=== PATIENT | female | born 1965 | race Caucasian/White ===

== ENCOUNTER 2023-06-18 21:24 | Emergency (ER) | payer OTHER ==
[2023-06-18 22:00] VITALS: BP 159/78; BMI 28.8
[2023-06-18 23:28] LABS: BASO % 0.8 % (0-2.0); EOS % 1.6 % (0-4.5); HEMATOCRIT 43.7 % (32.4-45.2); HEMOGLOBIN 15.3 GM/dL (10.7-15.3); LYMPH % 20.6 % (8-40); MEAN CELL VOLUME 88.5 fl (80-96); MONO % 5.9 % (3.8-10.2); NEUT % 71.1 % (42.8-82.8); PLATELET COUNT 317 10^3/uL (134-434); RBC 4.94 M/mm3 (3.60-5.2); RDW 13.5 % (11.6-15.6); WHITE BLOOD COUNT 13.1 K/mm3 (4.0-10.0)
[2023-06-18 23:32] LABS: PH,URINE 5.5 (5.0-8.0); URINE APPEARANCE CLEAR; URINE BILIRUBIN NEGATIVE (NEGATIVE); URINE COLOR YELLOW; URINE GLUCOSE (UA) NEGATIVE (NEGATIVE); URINE KETONE TRACE (NEGATIVE); URINE LEUK ESTERASE NEGATIVE (NEGATIVE); URINE NITRITE NEGATIVE (NEGATIVE); URINE PROTEIN NEGATIVE (NEGATIVE)
[2023-06-18 23:46] LABS: ALBUMIN 3.6 g/dl (3.4-5.0); CALCIUM 9.3 mg/dL (8.5-10.1); MAGNESIUM 2.1 mg/dL (1.8-2.4)
[2023-06-18 23:49] LABS: CREATININE 0.5 mg/dL (0.55-1.3)
[2023-06-18 23:51] LABS: BILIRUBIN,TOTAL 0.5 mg/dL (0.2-1); TOT PROT 6.2 g/dl (6.4-8.2)
[2023-06-18 23:58] LABS: INR 1.05 (0.83-1.09); PROTHROMBIN TIME (PATIENT) 11.8 SEC (9.7-13.0)
[2023-06-19 00:01] LABS: ACTIVATED PTT 34.7 SECONDS (25.2-36.5)
[2023-06-19 00:42] VITALS: PULSE 69; RESP 17; TEMP 97.9
== END 2023-06-19 04:55 ==
LOC: JER 21:24
PROC: 0HQ1XZZ Repair Face Skin, External Approach (ICD-10-PCS; principal; 2023-06-18)
DX: S01.112A Laceration without foreign body of left eyelid and periocular area, initial encounter (principal); S00.83XA Contusion of other part of head, initial encounter; Z20.822 Contact with and (suspected) exposure to COVID-19
CPT/HCPCS: 0241U-QW; 36415; 70450-TC; 71045-TC-FY; 72125-TC; 80053; 81003; 83735; 85025; 85610; 85730; 87086; 93005; 93010; 99285-25

== ENCOUNTER 2023-07-09 10:55 | Inpatient (IN) | payer OTHER ==
[2023-07-09 16:47] LABS: BASO % 0.7 % (0-2.0); EOS % 1.3 % (0-4.5); HEMATOCRIT 41.8 % (32.4-45.2); HEMOGLOBIN 14.6 GM/dL (10.7-15.3); LYMPH % 26.6 % (8-40); MEAN CELL VOLUME 88.7 fl (80-96); MEAN PLT VOLUME 7.3 fl (7.5-11.1); NEUT % 64.4 % (42.8-82.8); PLATELET COUNT 211 10^3/uL (134-434); RBC 4.71 M/mm3 (3.60-5.2); RDW 13.6 % (11.6-15.6); WHITE BLOOD COUNT 7.6 K/mm3 (4.0-10.0)
[2023-07-09 17:02] LABS: POTASSIUM 4.2 mmol/L (3.5-5.1)
[2023-07-09 17:05] LABS: ALBUMIN 3.3 g/dl (3.4-5.0); BLOOD UREA NITROGEN 16.2 mg/dL (7-18)
[2023-07-09 17:09] LABS: BILIRUBIN,TOTAL 0.6 mg/dL (0.2-1); CREATININE 0.3 mg/dL (0.55-1.3)
[2023-07-09] MEDS: REMDESIVIR 200 MG in SODIUM CHLORIDE 250 ML IVPB ONE (19:24)
[2023-07-09] MEDS: HEPARIN NA (PORCINE) 5,000 UNITS/ML 1ML VIAL SQ SCH (22:10)
[2023-07-09] MEDS: LURASIDONE HCL 40 MG TABLET PO SCH (22:10)
[2023-07-09] MEDS: propRANOLol HCL 10 MG TABLET PO SCH (22:10)
[2023-07-09] MEDS: LORazepam 0.5 MG TABLET PO SCH (22:11)
[2023-07-10 09:57] LABS: BASO % 1.1 % (0-2.0); EOS % 2.1 % (0-4.5); HEMOGLOBIN 13.5 GM/dL (10.7-15.3); LYMPH % 36.2 % (8-40); MCH 31.6 pg (25.7-33.7); MCHC 35.6 g/dl (32.0-36.0); MEAN CELL VOLUME 88.8 fl (80-96); MEAN PLT VOLUME 8.1 fl (7.5-11.1); MONO % 6.1 % (3.8-10.2); NEUT % 54.5 % (42.8-82.8); PLATELET COUNT 206 10^3/uL (134-434); RBC 4.28 M/mm3 (3.60-5.2); RDW 13.8 % (11.6-15.6)
[2023-07-10] MEDS: ZINC SULFATE 220 MG CAPSULE (FP) PO SCH (10:35)
[2023-07-10] MEDS: amLODIPine BESYLATE 5 MG TABLET (FP) PO SCH (10:35)
[2023-07-10] MEDS: MIRTAZAPINE 15 MG TABLET (FP) PO SCH (10:35)
[2023-07-10] MEDS: CHOLECALCIFEROL (VIT D3) 1,000 UNIT (25 MCG) TABLET PO SCH (10:35)
[2023-07-10] MEDS: POLYETHYLENE GLYCOL (HEALTHYLAX) 3350 17 GM PACKET PO SCH (10:35)
[2023-07-10] MEDS: ASCORBIC ACID 500 MG TABLET (FP) PO SCH (10:35)
[2023-07-10] MEDS: SENNOSIDES 8.6MG TABLET (FP) PO SCH (10:37)
[2023-07-10 10:50] LABS: BLOOD UREA NITROGEN 18.4 mg/dL (7-18); CALCIUM 9.1 mg/dL (8.5-10.1)
[2023-07-10 10:54] LABS: CREATININE 0.3 mg/dL (0.55-1.3)
[2023-07-10] MEDS: REMDESIVIR 100 MG in SODIUM CHLORIDE 250 ML IVPB SCH (17:10)
[2023-07-10] MEDS: SENNOSIDES 8.6MG TABLET (FP) PO ONE (23:43)
[2023-07-11 07:59] LABS: BASO % 1.1 % (0-2.0); EOS % 1.2 % (0-4.5); HEMATOCRIT 38.6 % (32.4-45.2); HEMOGLOBIN 13.2 GM/dL (10.7-15.3); LYMPH % 30.6 % (8-40); MCH 30.4 pg (25.7-33.7); MCHC 34.2 g/dl (32.0-36.0); MEAN CELL VOLUME 88.9 fl (80-96); MEAN PLT VOLUME 7.8 fl (7.5-11.1); MONO % 6.3 % (3.8-10.2); NEUT % 60.8 % (42.8-82.8); PLATELET COUNT 224 10^3/uL (134-434); RBC 4.34 M/mm3 (3.60-5.2); RDW 13.6 % (11.6-15.6); WHITE BLOOD COUNT 6.5 K/mm3 (4.0-10.0)
[2023-07-11 08:38] LABS: MAGNESIUM 2.1 mg/dL (1.8-2.4)
[2023-07-11 15:41] VITALS: BMI 30.9
[2023-07-11] MEDS: MIRTAZAPINE 15 MG TABLET (FP) PO SCH (22:50)
[2023-07-12 08:01] LABS: BASO % 0.9 % (0-2.0); EOS % 0.7 % (0-4.5); HEMATOCRIT 39.7 % (32.4-45.2); HEMOGLOBIN 14.1 GM/dL (10.7-15.3); LYMPH % 24.3 % (8-40); MCH 31.3 pg (25.7-33.7); MCHC 35.6 g/dl (32.0-36.0); MEAN PLT VOLUME 7.3 fl (7.5-11.1); MONO % 6.2 % (3.8-10.2); NEUT % 67.9 % (42.8-82.8); PLATELET COUNT 262 10^3/uL (134-434); RBC 4.51 M/mm3 (3.60-5.2); RDW 13.7 % (11.6-15.6)
[2023-07-13 08:17] LABS: BASO % 0.8 % (0-2.0); EOS % 1.1 % (0-4.5); HEMOGLOBIN 14.5 GM/dL (10.7-15.3); LYMPH % 25.1 % (8-40); MCH 31.3 pg (25.7-33.7); MCHC 35.4 g/dl (32.0-36.0); MEAN CELL VOLUME 88.7 fl (80-96); MEAN PLT VOLUME 7.4 fl (7.5-11.1); MONO % 6.6 % (3.8-10.2); NEUT % 66.4 % (42.8-82.8); PLATELET COUNT 260 10^3/uL (134-434); RBC 4.63 M/mm3 (3.60-5.2); RDW 13.9 % (11.6-15.6); WHITE BLOOD COUNT 6.9 K/mm3 (4.0-10.0)
[2023-07-13] MEDS: ACETAMINOPHEN 325 MG TABLET (FP) PO PRN (14:45)
[2023-07-14 14:12] VITALS: BP 107/86; PULSE 83; RESP 20; TEMP 97.5
== END 2023-07-14 13:52 | DRG 178 ==
LOC: JER 10:55 → JERBED 15:03 → J8W 19:33
PROVIDERS: ADMIT Internal Medicine; ATTEND Nurse Practitioner Acute Care
PROC: XW033E5 Introduction of Remdesivir Anti-infective into Peripheral Vein, Percutaneous Approach, New Technology Group 5 (ICD-10-PCS; principal; 2023-07-09)
DX: U07.1 COVID-19 (principal); F20.2 Catatonic schizophrenia; I69.351 Hemiplegia and hemiparesis following cerebral infarction affecting right dominant side; G35 Multiple sclerosis; I10 Essential (primary) hypertension; F32.9 Major depressive disorder, single episode, unspecified; E66.9 Obesity, unspecified; Z68.30 Body mass index [BMI] 30.0-30.9, adult
CPT/HCPCS: 36415; 71045-TC-FY; 80048; 80053; 83735; 85025; 85379; 86140; 87635; 97116-GP; 97162-GP; 99285-25; J0248; J1644

== ENCOUNTER 2024-01-20 11:03 | Inpatient (IN) | payer OTHER ==
[2024-01-20 14:28] LABS: BASO % 0.4 % (0-2.0); EOS % 2.1 % (0-4.5); HEMOGLOBIN 14.7 GM/dL (10.7-15.3); LYMPH % 21.2 % (8-40); MCH 31.2 pg (25.7-33.7); MCHC 34.1 g/dl (32.0-36.0); MEAN CELL VOLUME 91.3 fl (80-96); MEAN PLT VOLUME 7.6 fl (7.5-11.1); MONO % 4.4 % (3.8-10.2); NEUT % 71.9 % (42.8-82.8); PLATELET COUNT 219 10^3/uL (134-434); RDW 13.4 % (11.6-15.6); WHITE BLOOD COUNT 9.6 K/mm3 (4.0-10.0)
[2024-01-20 14:43] LABS: POTASSIUM 3.8 mmol/L (3.5-5.1)
[2024-01-20 14:45] LABS: CALCIUM 9.2 mg/dL (8.5-10.1); VENOUS BASE EXCESS -1.1 mmol/L (-2-2); VENOUS O2 SATURATION 92.7 % (70-80); VENOUS PCO2 37.2 mmHg (38-52); VENOUS PH 7.41 (7.310-7.410)
[2024-01-20 14:46] LABS: ALBUMIN 3.1 g/dl (3.4-5.0)
[2024-01-20 14:49] LABS: CREATININE 0.3 mg/dL (0.55-1.3)
[2024-01-20 14:50] LABS: BILIRUBIN,TOTAL 0.6 mg/dL (0.2-1); TOT PROT 5.6 g/dl (6.4-8.2)
[2024-01-20 15:03] LABS: EPI CELLS >36 /uL (0-25.1); HYALINE CASTS 1 /uL (0-3.1); PH,URINE 5.5 (5.0-8.0); URINE APPEARANCE CLOUDY; URINE BACTERIA 775 /uL (0-1359); URINE BILIRUBIN NEGATIVE (NEGATIVE); URINE COLOR YELLOW; URINE GLUCOSE (UA) NEGATIVE (NEGATIVE); URINE KETONE 3+ (NEGATIVE); URINE LEUK ESTERASE TRACE (NEGATIVE); URINE NITRITE NEGATIVE (NEGATIVE); URINE PROTEIN NEGATIVE (NEGATIVE); URINE WBC 39 /uL (0-25.8)
[2024-01-20 15:28] LABS: URINE RBC 21 /uL (0-23.9)
[2024-01-20] MEDS ORDERED: CEFTRIAXONE 1 G/50 ML PREMIX 50 ML IVPB ONE (16:01)
[2024-01-20] MEDS: DEXTROSE 5%-0.45% SALINE 1,000 ML IV SCH (18:51)
[2024-01-20] MEDS ORDERED: HEPARIN NA (PORCINE) 5,000 UNITS/ML 1ML VIAL ONE (22:09)
[2024-01-20] MEDS ORDERED: LORazepam 0.5 MG TABLET ONE ×2 (22:13→22:17)
[2024-01-20] MEDS: HEPARIN NA (PORCINE) 5,000 UNITS/ML 1ML VIAL SQ SCH (22:14)
[2024-01-20] MEDS: LORazepam 0.5 MG TABLET PO SCH (22:22)
[2024-01-21 08:41] LABS: POTASSIUM 3.3 mmol/L (3.5-5.1)
[2024-01-21 08:45] LABS: BASO % 0.4 % (0-2.0); EOS % 2.1 % (0-4.5); HEMATOCRIT 37.1 % (32.4-45.2); LYMPH % 17.3 % (8-40); MCH 31.9 pg (25.7-33.7); MCHC 34.9 g/dl (32.0-36.0); MEAN CELL VOLUME 91.2 fl (80-96); MEAN PLT VOLUME 8.2 fl (7.5-11.1); MONO % 4.6 % (3.8-10.2); NEUT % 75.6 % (42.8-82.8); PLATELET COUNT 212 10^3/uL (134-434); RBC 4.07 M/mm3 (3.60-5.2); RDW 13.3 % (11.6-15.6); WHITE BLOOD COUNT 10.2 K/mm3 (4.0-10.0)
[2024-01-21 08:51] LABS: BLOOD UREA NITROGEN 12.6 mg/dL (7-18); CALCIUM 8.7 mg/dL (8.5-10.1)
[2024-01-21 08:53] LABS: CREATININE 0.2 mg/dL (0.55-1.3)
[2024-01-21] MEDS: MIRTAZAPINE 15 MG TABLET (FP) PO SCH (10:02)
[2024-01-21] MEDS: amLODIPine BESYLATE 5 MG TABLET (FP) PO SCH (10:02)
[2024-01-21] MEDS: POTASSIUM CHLORIDE ORAL LIQUID 20 MEQ/15 ML PO SCH (10:06)
[2024-01-21] MEDS: risperiDONE 1 MG TABLET PO SCH (12:42)
[2024-01-21] MEDS: risperiDONE 2 MG TABLET PO SCH (12:42)
[2024-01-21] MEDS: CEFTRIAXONE 1 G/50 ML PREMIX 50 ML IVPB SCH (15:26)
[2024-01-21 16:09] VITALS: BMI 23.6
[2024-01-22] MEDS: DEXTROSE 5%-0.45% SALINE 1,000 ML IV SCH (01:11)
[2024-01-22] MEDS: LURASIDONE HCL 20 MG TABLET PO SCH (10:40)
[2024-01-22] MEDS: ERTAPENEM SODIUM 1 GM in SODIUM CHLORIDE 50 ML IVPB SCH (14:30)
[2024-01-22] MEDS: CEPHALEXIN 250 MG/5 ML ORAL SUSPENSION PO SCH (16:55)
[2024-01-23 08:49] LABS: EOS % 2.1 % (0-4.5); HEMOGLOBIN 14.3 GM/dL (10.7-15.3); MCH 31.5 pg (25.7-33.7); MCHC 34.9 g/dl (32.0-36.0); MEAN CELL VOLUME 90.5 fl (80-96); MEAN PLT VOLUME 8.1 fl (7.5-11.1); MONO % 4.3 % (3.8-10.2); NEUT % 70.6 % (42.8-82.8); PLATELET COUNT 284 10^3/uL (134-434); RBC 4.53 M/mm3 (3.60-5.2)
[2024-01-23 09:20] LABS: POTASSIUM 4.1 mmol/L (3.5-5.1)
[2024-01-23 09:22] LABS: CALCIUM 9.5 mg/dL (8.5-10.1)
[2024-01-23 09:23] LABS: BLOOD UREA NITROGEN 8.6 mg/dL (7-18)
[2024-01-23 09:24] LABS: MAGNESIUM 1.9 mg/dL (1.8-2.4)
[2024-01-23 09:26] LABS: CREATININE 0.4 mg/dL (0.55-1.3)
[2024-01-23 09:27] LABS: ALBUMIN 3.3 g/dl (3.4-5.0); BILIRUBIN,TOTAL 0.4 mg/dL (0.2-1); TOT PROT 5.5 g/dl (6.4-8.2)
[2024-01-23 13:59] VITALS: RESP 18; TEMP 98.4
[2024-01-23 20:41] VITALS: BP 137/84; PULSE 77
== END 2024-01-23 20:42 | DRG 689 ==
LOC: JER 11:03 → JERBED 20:37 → J8W 01-21 00:18
PROVIDERS: ADMIT Internal Medicine
PROC: 05HY33Z Insertion of Infusion Device into Upper Vein, Percutaneous Approach (ICD-10-PCS; principal; 2024-01-23)
DX: N39.0 Urinary tract infection, site not specified (principal); R53.2 Functional quadriplegia; F20.2 Catatonic schizophrenia; G81.91 Hemiplegia, unspecified affecting right dominant side; G35 Multiple sclerosis; I10 Essential (primary) hypertension; F20.9 Schizophrenia, unspecified; F32.9 Major depressive disorder, single episode, unspecified; R62.7 Adult failure to thrive; B96.89 Other specified bacterial agents as the cause of diseases classified elsewhere
CPT/HCPCS: 0241U-QW; 36415; 36569; 70450-TC; 71045-TC-FY; 80048; 80053; 81003; 82803; 82962; 83605; 83735; 84484; 85025; 87086; 87186; 93005; 93010; 99285-25; J1644